=== PATIENT | male | born 2000 | race Caucasian/White ===

== ENCOUNTER 2021-03-27 14:09 | Emergency (ER) | payer BC, SELFPAY ==
[2021-03-27 14:12] VITALS: BP 140/63; PULSE 78; RESP 16; TEMP 36.3; O2SAT 100
[2021-03-27 14:31] LABS: Add Manual Diff / Slide Review NO; Basophils Absolute Auto 0 /uL (0-100); Basophils Percent Auto 0.4 % (0-2); Eosinophils Absolute Auto 800 /uL (0-450); Eosinophils Percent Auto 7.1 % (2-4); Hemoglobin 16.6 g/dL (13.5-17.5); Lymphocytes Absolute Auto 2700 /uL (1100-4500); Lymphocytes Percent Auto 24.9 % (25-40); Mean Corpuscular HGB Conc 34.7 % (30-36); Mean Corpuscular Hemoglobin 28.5 PG (26-34); Mean Corpuscular Volume 82.1 fL (80-100); Monocytes Absolute Auto 1000 /uL (0-900); Neutrophils Absolute Auto 6300 /uL (1500-7000); Neutrophils Percent Auto 58.6 % (50-75); Platelet Count 227 X10^3/uL (150-400); Red Blood Cell Count 5.84 X10^6/uL (4.5-5.9); Red Cell Distribution Width 14.1 % (11.6-14.8); White Blood Cell Count 10.8 X10^3/uL (4.5-11.0)
[2021-03-27 14:52] LABS: Alanine Aminotransferase 15 IU/L (<50); Albumin 4.8 g/dL (3.5-5.0); Albumin Globulin Ratio 1.2 (1.0-2.8); Alkaline Phosphatase 86 U/L (38-126); Aspartate Aminotransferase 24 IU/L (17-59); Bilirubin Total 0.6 mg/dL (0.2-1.3); Blood Urea Nitrogen 12 mg/dL (9-20); Calcium 9.7 mg/dL (8.4-10.2); Carbon Dioxide 29 mmol/L (22-32); Chloride 105 mmol/L (98-107); Estimated Glomerular Filt Rate > 60.0 mL/min (>60); Glucose 85 mg/dL (70-100); HEMOLYSIS 18 (0-50); Lipase 30 U/L (23-300); Potassium 4.5 mmol/L (3.4-5.1); Sodium 139 mmol/L (137-145); Total Protein 8.8 g/dL (6.3-8.2)
--- NOTE | 2021-03-27 15:48 | DI.CT.S_ITS ---
PROCEDURE: CT ABDOMEN PELVIS WO CON INDICATIONS: left upper quad pain TECHNIQUE: Noncontrast 5 mm thick sections acquired from the diaphragms to the symphysis. 5 mm coronal and sagittal reformats were then performed. For radiation dose reduction, the following was used: automated exposure control, adjustment of mA and/or kV according to patient size. COMPARISON: None. FINDINGS: Image quality: Excellent. ABDOMEN: Lung bases: Lung bases are clear. Heart size is normal. Solid organs: Liver is normal in size. Gallbladder is unremarkable. Pancreas is normal in contours. Spleen is normal in size. No adrenal nodules. Kidneys are normal in size, without hydronephrosis or nephrolithiasis. Peritoneum and bowel: Unenhanced bowel loops demonstrate normal wall thickness and caliber. No free fluid or air. Nodes and vessels: No retroperitoneal or mesenteric adenopathy by size criteria. Aorta and inferior vena cava are normal in caliber. Miscellaneous: No ventral hernias. PELVIS: Genitourinary: Bladder wall thickness is questionably mild thickened. Miscellaneous: No inguinal hernias or adenopathy. Bones: No suspicious bony lesions. No vertebral body compression fractures. IMPRESSION: Questionable mild thickening of the urinary bladder. Recommend correlation with urinalysis to exclude cystitis, otherwise unremarkable non-contrast appearance of the abdomen and pelvis. Dictated by: Lawrence Rivas D.O. on 03/27/2021 at 15:30 Approved by: Lawrence Rivas D.O. on 03/27/2021 at 15:33
--- NOTE | 2021-03-27 15:49 | ED.ABDPAIN ---
HPI - Abdominal Pain General Chief Complaint: Abdominal Pain Stated Complaint: COVID+, Lt Sided Abd Pain Time Seen by Provider: 03/27/21 15:40 Source: patient Mode of arrival: Ambulatory History of Present Illness HPI narrative: Patient presents the ED complaining of left upper quadrant abdominal pain that started this morning. He was diagnosed with COVID yesterday which she said this is his 3rd time to get COVID. His current symptoms with COVID related are sore throat and fever. He denies any shortness of breath cough runny nose or congestion. Today he has been having some nausea however no reported vomiting. He has been having bowel trouble off and on for the past month where he has had bouts with chronic diarrhea for multiple weeks. He reports over the last month he has had approximately 50 lb of weight loss and has not been dieting or attempting to lose weight. His abdominal pain located in the left upper quadrant is sharp in nature and is constant nothing seems to make it better nothing seems to make it worse. Related Data Allergies Allergy/AdvReac Type Severity Reaction Status Date / Time No Known Drug Allergies Allergy Verified 03/27/21 14:14 Review of Systems Review of Systems ROS Unobtainable: All systems reviewed & are unremarkable except as noted in HPI and below Constitutional Constitutional: Denies chills, Denies fatigue, Denies fever(s), Denies frequent falls, Denies lethargy and Denies weakness Eyes Eyes: Denies change in vision, Denies eye discharge, Denies irritation and Denies loss of vision ENT Ears, Nose, Mouth, and Throat: Denies change in voice, Denies dizziness, Denies neck pain, Denies sore throat and Denies throat swelling Cardiovascular Cardiovascular: Denies chest pain, Denies irregular heart rhythm, Denies lightheadedness, Denies palpitations, Denies dyspnea, Denies dyspnea on exertion and Denies orthopnea Respiratory Respiratory: Denies cough, Denies dyspnea, Denies dyspnea on exertion and Denies wheezing Gastrointestinal Gastrointestinal: Reports abdominal pain, Reports change in bowel habits, Reports diarrhea, Denies nausea and Denies vomiting Genitourinary Genitourinary: Denies hematuria, Denies flank pain, Denies urinary incontinence and Denies urinary urgency Musculoskeletal Musculoskeletal: Denies back pain, Denies muscle weakness, Denies neck pain, Denies numbness and Denies tingling Integumentary/Breasts Skin/Breast: Denies pruritus, Denies erythema, Denies rash and Denies wounds Neurologic Neurologic: Denies behavioral changes, Denies confusion, Denies dizziness, Denies frequent falls, Denies loss of vision, Denies numbness, Denies tingling and Denies weakness Psychiatric Psychiatric: Denies anxiety, Denies behavioral changes, Denies confusion, Denies depression, Denies homicidal ideation and Denies suicidal ideation Endocrine Endocrine: Denies fatigue, Denies flushing and Denies palpitations Hematologic/Lymphatic Hematologic/Lymphatic: Denies easy bruising Allergic/Immunologic Allergic/Immunologic: Denies urticaria, Denies throat swelling and Denies wheezing Exam Initial Vital Signs Initial Vital Signs: Vital Signs Temperature 97.4 F L 03/27/21 14:12 Pulse Rate 78 03/27/21 14:12 Respiratory Rate 16 03/27/21 14:12 Blood Pressure 140/63 03/27/21 14:12 Pulse Oximetry 100 03/27/21 14:12 Const General: cooperative, healthy appearing and comfortable Nutritional Appearance: average body habitus Orientation: Orientation [facility] Head: normal to inspection, normocephalic and atraumatic Ears: hearing grossly normal bilaterally and external ears normal Nose: external nose normal and nares normal Face and sinus: normal facial exam and sinuses nontender Mouth: oral mucosae normal and lip normal Teeth and gingiva: dentition normal and gingiva normal Eyes General: appearance normal, both eyes and all related structures Pupils: PERRL Neck Neck: normal visual inspection, full ROM and no meningeal signs Resp Effort & Inspection: normal respiratory effort Auscultation: clear to auscultation bilaterally Percussion: percussion normal Cardio Rate: regular rate Rhythm: regular rhythm Heart Sounds: S1 normal and S2 normal GI Inspection: normal to inspection Palpation: soft and no hepatosplenomegaly Percussion: normal to percussion Auscultation: normal bowel sounds Course Course Course Narrative: Patient's workup was negative no significant reason found for his left upper quadrant abdominal pain. Patient will be discharged home told to follow-up with PCP Orders Ordered: ED Orders 03/27/21 14:20 Complete Blood Count AUTO DIFF Stat Comprehensive Metabolic Panel Stat Lipase Stat 03/27/21 14:26 EKG-12 Lead Stat 03/27/21 15:48 CT abdomen pelvis wo con Stat Reevaluation(s) Reevaluation #1: No change in patient's pain no reported nausea or vomiting. Vital Signs Vital signs: Vital Signs - 8 hr 03/27/21 14:12 03/27/21 16:28 Temperature 97.4 F L Pulse Rate 78 80 Respiratory Rate 16 16 Blood Pressure 140/63 151/66 H Pulse Oximetry 100 100 MDM - Abdominal Pain Differential Diagnosis Differential diagnosis: Likely abdominal pain Lab Data Result diagrams: 03/27/21 14:20 03/27/21 14:20 Labs: Lab Results 03/27/21 03/27/21 Range/Units 14:20 14:20 WBC 10.8 (4.5-11.0) X10^3/uL RBC 5.84 (4.5-5.9) X10^6/uL Hgb 16.6 (13.5-17.5) g/dL Hct 48.0 (41-53) % MCV 82.1 (80-100) fL MCH 28.5 (26-34) PG MCHC 34.7 (30-36) % RDW 14.1 (11.6-14.8) % Plt Count 227 (150-400) X10^3/uL Neut % (Auto) 58.6 (50-75) % Lymph % (Auto) 24.9 L (25-40) % [place] % (Auto) 9.0 (3-14) % Eos % (Auto) 7.1 H (2-4) % Baso % (Auto) 0.4 (0-2) % Neut # (Auto) 6300 (3032-4489) /uL Lymph # (Auto) 2700 (7305-8489) /uL [place] # (Auto) 1000 H (0-900) /uL Eos # (Auto) 800 H (0-450) /uL Baso # (Auto) 0 (0-100) /uL Sodium 139 (137-145) mmol/L Potassium 4.5 (3.4-5.1) mmol/L Chloride 105 (98-107) mmol/L Carbon Dioxide 29 (22-32) mmol/L BUN 12 (9-20) mg/dL Creatinine 0.92 (0.66-1.25) mg/dL Estimated GFR > 60.0 (>60) mL/min BUN/Creatinine Ratio 13.0 (6-22) Glucose 85 (70-100) mg/dL Calcium 9.7 (8.4-10.2) mg/dL Total Bilirubin 0.6 (0.2-1.3) mg/dL AST 24 (17-59) IU/L ALT 15 (<50) IU/L Alkaline Phosphatase 86 (38-126) U/L Total Protein 8.8 H (6.3-8.2) g/dL Albumin 4.8 (3.5-5.0) g/dL Globulin 4.0 (1.7-4.1) g/dL Albumin/Globulin Ratio 1.2 (1.0-2.8) Lipase 30 (23-300) U/L Point of care testing: Urine Dip Bedside Urine Glucose Negative Bedside Urine Bilirubin - Negative Bedside Urine Ketone - Negative Urine Specific [place] 1.025 Bedside Urine Occult Blood - Negative Bedside Urine pH 6.0 Bedside Urine Protein - Negative Bedside Urine Urobilinogen - Negative Bedside Urine Nitrite - Negative Bedside Urine Leukocytes - Negative Esterase MDM Narrative Medical decision making narrative: Patient's workup was essentially negative oblique patient have an element of gastritis. Patient will be discharged home told to follow-up with PCP Discharge Plan Departure Patient Disposition: Home Clinical Impression: Gastritis Instructions: DI for Abdominal Pain-Adult Referrals: Miscellaneous,Doctor [Primary Care Provider] -
[2021-03-27 16:28] VITALS: BP 151/66; PULSE 80; RESP 16; O2SAT 100
[2021-03-27 17:41] VITALS: BP 125/78; PULSE 69; O2SAT 99
== END 2021-03-27 18:12 | disposition home or self-care (01) ==
PROVIDERS: Emergency Medicine; Emergency Provider Physician Assistant
DX: K29.70 Gastritis, unspecified, without bleeding (principal); R63.4 Abnormal weight loss
CPT/HCPCS: 36415; 74176; 80053; 81003; 83690; 85025; 99284